=== PATIENT | female | born 1960 | race American Indian/Alaskan Native ===

== ENCOUNTER 2017-05-18 10:44 | Emergency (ER) | payer MEDICAID, OTHER ==
[2017-05-18] MEDS ORDERED: Aspirin 81 MG Tab.Chew PO ONE (11:09)
[2017-05-18] MEDS ORDERED: Nitroglycerin 0.4 MG Tab.SL SL PRN (11:09)
[2017-05-18] MEDS ORDERED: Sodium Chloride 0.9% 10 ML Syringe FLUSH PRN (11:09)
--- NOTE | 2017-05-18 11:09 | EDM.PDOC ---
ED HPI GENERAL MEDICAL PROBLEM - General Chief Complaint: Chest Pain Stated Complaint: [id number] BAD CHEST PAINS Time Seen by Provider: 05/18/17 11:00 Source of Information: Reports: Patient, RN, RN Notes Reviewed History Limitations: Reports: No Limitations - History of Present Illness INITIAL COMMENTS - FREE TEXT/NARRATIVE: Patient complains of burning pain in the chest and belching, nausea, vomiting and back pain. It has been coming and going for 2 days but much worse this morning. Patient states this began with epigastric pain, which is still present. She initially thought it was related to her GERD, but states she has been taking her Protonix which usually helps but she is not sure. Denies shortness of breath, cough, constipation or diarrhea. Admits to fever and chills sensation yesterday, but did not check her temperature. Duration: Constant, Getting Worse Location: Reports: Chest, Abdomen Quality: Reports: Burning, Pressure Severity: Severe Improves with: Reports: None Worsens with: Reports: Eating Associated Symptoms: Reports: No Other Symptoms Treatments LOGISTICS PROGRAM MANAGER: Reports: Acetaminophen, Other Medication(s) Epigastric Pain Score (Numeric/FACES): 8 - Related Data Allergies Allergy/AdvReac Type Severity Reaction Status Date / Time No Known Allergies Allergy Verified 05/18/17 11:05 Home Meds: Home Meds Pantoprazole [Protonix] 40 mg PO DAILY 01/29/13 [History] Acetaminophen [Tylenol Extra Strength] 500 mg PO Q6H PRN 04/11/13 [History] Ibuprofen [Motrin] 200 mg PO Q6H PRN 04/11/13 [History] Menthol [Bengay] 113 gm TP ASDIRECTED 04/11/13 [History] Past Medical History Gastrointestinal History: Reports: Cholelithiasis, GERD Musculoskeletal History: Reports: Back Pain, Chronic - Past Surgical History GI Surgical History: Reports: Appendectomy, Cholecystectomy Social & Family History - Family History Family Medical History: Noncontributory - Tobacco Use Years of Tobacco use: 35 - Alcohol Use Days Per Week of Alcohol Use: 0 - Recreational Drug Use Recreational Drug Use: No - Living Situation & Occupation Living situation: Reports: with Family ED ROS GENERAL - Review of Systems Review Of Systems: ROS reveals no pertinent complaints other than HPI. ED EXAM, GENERAL - Physical Exam Exam: See Below Exam Limited By: No Limitations General Appearance: Alert, WD/WN, No Apparent Distress Eye Exam: Bilateral Eye: Normal Inspection Ears: Hearing Grossly Normal Nose: Normal Inspection, Normal Mucosa, No Blood Throat/Mouth: Other (dry oral membranes) Head: Atraumatic, Normocephalic Neck: Normal Inspection, Supple, Non-Tender, Full Range of Motion Respiratory/Chest: No Respiratory Distress, Lungs Clear, Normal Breath Sounds, No Accessory Muscle Use, Chest Non-Tender Cardiovascular: Regular Rate, Rhythm, Tachycardia GI/Abdominal: Normal Bowel Sounds, Soft, No Distention, No Abnormal Bruit, Tender (epigastric and suprapubic regions, no peritoneal signs). No: Guarding, Rigid, Rebound (Female) Exam: Deferred Rectal (Female) Exam: Heme - Stool (negative) Back Exam: CVA Tenderness (R) (mild). No: CVA Tenderness (L) Neurological: Alert, Oriented, CN II-XII Intact, Normal Cognition, Normal Gait, No Motor/Sensory Deficits Psychiatric: Normal Affect, Normal Mood Skin Exam: Warm, Dry, Intact, Normal Color, No Rash EKG INTERPRETATION EKG Date: 05/18/17 Time: 10:59 Rhythm: Other (sinus rhythm) Rate (Beats/Min): 89 [place]: Normal P-Wave: Present QRS: Normal ST-T: Normal QT: Normal Course - Vital Signs Last Recorded V/S: Last Vital Signs Temp 36.8 C 05/18/17 10:58 Pulse 108 H 05/18/17 10:58 Resp 16 05/18/17 10:58 BP 150/78 H 05/18/17 11:17 Pulse Ox 100 05/18/17 10:58 - Orders/Labs/Meds Orders: Active Orders 24 hr Category Date Time Status EKG 12 Lead [EKG Documentation Completion] [RC] STAT Care 05/18/17 11:08 Active Peripheral IV Care [RC] . DIRECTED Care 05/18/17 11:10 Active CULTURE URINE [RM] Stat Lab 05/18/17 11:45 Received Peripheral IV Insertion Adult [OM.PC] Stat Oth 05/18/17 11:09 Ordered Labs: Laboratory Tests 05/18/17 05/18/17 05/18/17 Range/Units 11:18 11:18 11:18 WBC 8.8 (5.0-10.0) 10^3/uL RBC 4.33 (4.2-5.4) 10^6/uL Hgb 8.8 L D (12.0-16.0) g/dL Hct 28.9 L (37.0-47.0) % MCV 66.7 L D (80-100) fL MCH 20.3 L (27.0-34.0) pg MCHC 30.4 L (33.0-35.0) g/dL Plt Count 369 D (150-450) 10^3/uL Neut % (Auto) 74.1 (42.2-75.2) % Lymph % (Auto) 13.9 L (20.5-50.1) % [place] % (Auto) 10.3 H (2-8) % Eos % (Auto) 0.8 L (1.0-3.0) % Baso % (Auto) 0.9 (0.0-1.0) % PT 10.7 (9.0-12.0) SEC INR 1.1 (0.9-1.2) APTT 23.9 (22.0-34.0) SEC D-Dimer, Quantitative 152 (0-400) ng/mL Sodium 132 L (135-145) mmol/L Potassium 3.9 (3.6-5.0) mmol/L Chloride 99 L (101-111) mmol/L Carbon Dioxide 24.0 (21.0-31.0) mmol/L Anion Gap 12.9 BUN 11 (7-18) mg/dL Creatinine 0.6 (0.6-1.3) mg/dL Est Cr Clr Drug Dosing 82.80 mL/min Estimated GFR (MDRD) > 60 BUN/Creatinine Ratio 18.33 Glucose 115 H (74-105) mg/dL Calcium 9.1 (8.4-10.2) mg/dl Total Bilirubin 0.8 (0.2-1.0) mg/dL AST 18 (10-42) IU/L ALT 10 (10-60) IU/L Alkaline Phosphatase 59 (42-121) IU/L Troponin I < 0.02 (0.00-0.02) ng/ml Total Protein 7.7 (6.7-8.2) g/dl Albumin 4.3 (3.2-5.5) g/dl Globulin 3.4 Albumin/Globulin Ratio 1.26 Amylase 19 L (28-100) U/L Lipase 15 L (22-51) U/L Urine Color (YELLOW) Urine Appearance (CLEAR) Urine pH (5.0-9.0) Ur Specific [place] (1.005-1.030) Urine Protein (NEGATIVE) Urine Glucose (UA) (NEGATIVE) Urine Ketones (NEGATIVE) Urine Occult Blood (NEGATIVE) Urine Nitrite (NEGATIVE) Urine Bilirubin (NEGATIVE) Urine Urobilinogen (0.2-1.0) mg/dL Ur Leukocyte Esterase (NEGATIVE) Urine RBC /HPF Urine WBC (0-5/HPF) /HPF Ur Epithelial Cells /HPF Urine Bacteria (0-FEW/HPF) /HPF Urine Opiates Screen (NEGATIVE) Ur Oxycodone Screen (NEGATIVE) Urine Methadone Screen (NEGATIVE) Ur Barbiturates Screen (NEGATIVE) U Tricyclic Antidepress (NEGATIVE) Ur Phencyclidine Scrn (NEGATIVE) Ur Amphetamine Screen (NEGATIVE) U Methamphetamines Scrn (NEGATIVE) Urine MDMA Screen (NEGATIVE) U Benzodiazepines Scrn (NEGATIVE) Urine Cocaine Screen (NEGATIVE) U Marijuana (THC) Screen (NEGATIVE) 05/18/17 05/18/17 Range/Units 11:45 11:45 WBC (5.0-10.0) 10^3/uL RBC (4.2-5.4) 10^6/uL Hgb (12.0-16.0) g/dL Hct (37.0-47.0) % MCV (80-100) fL MCH (27.0-34.0) pg MCHC (33.0-35.0) g/dL Plt Count (150-450) 10^3/uL Neut % (Auto) (42.2-75.2) % Lymph % (Auto) (20.5-50.1) % [place] % (Auto) (2-8) % Eos % (Auto) (1.0-3.0) % Baso % (Auto) (0.0-1.0) % PT (9.0-12.0) SEC INR (0.9-1.2) APTT (22.0-34.0) SEC D-Dimer, Quantitative (0-400) ng/mL Sodium (135-145) mmol/L Potassium (3.6-5.0) mmol/L Chloride (101-111) mmol/L Carbon Dioxide (21.0-31.0) mmol/L Anion Gap BUN (7-18) mg/dL Creatinine (0.6-1.3) mg/dL Est Cr Clr Drug Dosing mL/min Estimated GFR (MDRD) BUN/Creatinine Ratio Glucose (74-105) mg/dL Calcium (8.4-10.2) mg/dl Total Bilirubin (0.2-1.0) mg/dL AST (10-42) IU/L ALT (10-60) IU/L Alkaline Phosphatase (42-121) IU/L Troponin I (0.00-0.02) ng/ml Total Protein (6.7-8.2) g/dl Albumin (3.2-5.5) g/dl Globulin Albumin/Globulin Ratio Amylase (28-100) U/L Lipase (22-51) U/L Urine Color Yellow (YELLOW) Urine Appearance Slightly cloudy (CLEAR) Urine pH 5.5 (5.0-9.0) Ur Specific [place] 1.025 (1.005-1.030) Urine Protein 30 H (NEGATIVE) Urine Glucose (UA) Negative (NEGATIVE) Urine Ketones Trace H (NEGATIVE) Urine Occult Blood Trace-lysed H (NEGATIVE) Urine Nitrite Positive H (NEGATIVE) Urine Bilirubin Small H (NEGATIVE) Urine Urobilinogen 1.0 (0.2-1.0) mg/dL Ur Leukocyte Esterase Trace H (NEGATIVE) Urine RBC 0-5 /HPF Urine WBC 5-10 H (0-5/HPF) /HPF Ur Epithelial Cells Rare /HPF Urine Bacteria Many H (0-FEW/HPF) /HPF Urine Opiates Screen Negative (NEGATIVE) Ur Oxycodone Screen Negative (NEGATIVE) Urine Methadone Screen Negative (NEGATIVE) Ur Barbiturates Screen Negative (NEGATIVE) U Tricyclic Antidepress Negative (NEGATIVE) Ur Phencyclidine Scrn Negative (NEGATIVE) Ur Amphetamine Screen Negative (NEGATIVE) U Methamphetamines Scrn Positive H (NEGATIVE) Urine MDMA Screen Negative (NEGATIVE) U Benzodiazepines Scrn Negative (NEGATIVE) Urine Cocaine Screen Negative (NEGATIVE) U Marijuana (THC) Screen Positive H (NEGATIVE) Meds: Medications Discontinued Medications Generic Name Dose Route Start Last Admin Trade Name Freq PRN Reason Stop Dose Admin Al Hydroxide/Mg Hydroxide 30 ml 05/18/17 12:45 05/18/17 14:04 Gi Cocktail PO 05/18/17 12:46 30 ml ONETIME ONE Administration Aspirin 324 mg 05/18/17 11:09 05/18/17 11:16 Aspirin PO 05/18/17 11:10 324 mg ONETIME ONE Administration Hydromorphone HCl 1 mg 05/18/17 12:45 05/18/17 12:56 Dilaudid IVPUSH 05/18/17 12:46 1 mg ONETIME ONE Administration Ceftriaxone Sodium 1,000 mg/ 50 mls @ 100 mls/hr 05/18/17 12:20 05/18/17 12: 38 Sodium Chloride IV 05/18/17 12:49 100 mls/hr ONETIME ONE Administration Sodium Chloride 1,000 mls @ 999 mls/hr 05/18/17 12:32 05/18/17 12:46 Normal Saline IV 05/18/17 13:32 999 mls/hr .BOLUS ONE Administration Iopamidol 75 ml 05/18/17 12:33 05/18/17 13:53 Isovue-300 (61%) IVPUSH 05/18/17 12:34 75 ml ONETIME ONE Administration Nitroglycerin 0.4 mg 05/18/17 11:09 05/18/17 11:17 Nitrostat SL 0.4 mg Q5M PRN Administration Chest Pain Ondansetron HCl 4 mg 05/18/17 12:32 05/18/17 12:44 Zofran IV 05/18/17 12:33 4 mg ONETIME ONE Administration Pantoprazole Sodium 40 mg 05/18/17 12:32 05/18/17 12:44 Protonix Iv IVPUSH 05/18/17 12:33 40 mg ONETIME ONE Administration Sodium Chloride 10 ml 05/18/17 11:09 05/18/17 11:24 Saline Flush FLUSH 10 ml ASDIRECTED PRN Administration Keep Vein Open - Radiology Interpretation Free Text/Narrative:: Chest x-ray: Chronic mild peribronchial "cuffing" and air trapping suggesting reactive airway disease (bronchitis) and bronchospasm. See rad report. CT abdomen and pelvis: Multilevel lower lumbar disc disease/arthritis. Appendectomy/cholecystectomy. Usual signs of senescence. No mechanical bowel obstruction, sign of malignant or acute intraperitoneal abnormality. Negative Kidneys. See rad report. Departure - Departure Time of Disposition: 14:38 Disposition: Home, Self-Care 01 Condition: Fair Clinical Impression: Pyelonephritis, Gastritis, GERD (gastroesophageal reflux disease), Non-cardiac chest pain Instructions: Gastritis, Adult, [id number], Pyelonephritis, Adult, Easy-to- Read Referrals: PCP,None [Primary Care Provider] - Forms: ED Department Discharge Additional Instructions: RX: Cipro 500mg. RX: Promethazine 25mg. &DO NOT DRIVE while under the influence of this medication. RX: [place] 5mg/325mg. *DO NOT Drive while under the influence of this medication. RX: Carafate 1gram. Clear liquid diet until nausea and vomiting resolve and then advance to soft bland diet as tolerated. Follow up in clinic next week - My Orders Last 24 Hours: My Active Orders 05/18/17 11:08 EKG 12 Lead [EKG Documentation Completion] [RC] STAT 05/18/17 11:09 Peripheral IV Insertion Adult [OM.PC] Stat 05/18/17 11:10 Peripheral IV Care [RC] . DIRECTED 05/18/17 11:45 CULTURE URINE [RM] Stat - Assessment/Plan Last 24 Hours: My Active Orders 05/18/17 11:08 EKG 12 Lead [EKG Documentation Completion] [RC] STAT 05/18/17 11:09 Peripheral IV Insertion Adult [OM.PC] Stat 05/18/17 11:10 Peripheral IV Care [RC] . DIRECTED 05/18/17 11:45 CULTURE URINE [RM] Stat
[2017-05-18 11:46] LABS: CHLORIDE,CL 99 mmol/L (101-111); SODIUM,NA 132 mmol/L (135-145)
--- NOTE | 2017-05-18 12:18 | CR ---
CLINICAL HISTORY: 56-year-old female with chest pain. INTERPRETATION: No acute new cardiopulmonary abnormality when compared to 29 January 2013 exam. Chronic mild peribronchial "cuffing" and air trapping suggesting reactive airway disease (bronchitis) and bronchospasm. Smoker? Chronic arthritic changes of the spine. Normal cardiac silhouette without alveolar edema or dependent effusion. No new lung mass, hilar lymphadenopathy or focal lobar pneumonia. No atelectasis/collapse. No pneumothorax.
[2017-05-18] MEDS ORDERED: cefTRIAXone 1,000 MG in Sodium Chloride 0.9% 50 ML IV ONE (12:20)
[2017-05-18] MEDS ORDERED: Ondansetron 4 MG/2 ML SDV IV ONE (12:32)
[2017-05-18] MEDS ORDERED: Pantoprazole 40 MG Vial IVPUSH ONE (12:32)
[2017-05-18] MEDS ORDERED: Sodium Chloride 0.9% 1,000 ML IV ONE (12:32)
[2017-05-18] MEDS ORDERED: Iopamidol 612 MG/ML 75 ML Bottle IVPUSH ONE (12:33)
[2017-05-18] MEDS ORDERED: HYDROmorphone 0.5 MG/0.5 ML Syringe IVPUSH ONE (12:45)
[2017-05-18] MEDS ORDERED: GI Cocktail Oral Solution 30 ML PO ONE (12:45)
--- NOTE | 2017-05-18 14:19 | CT ---
Clinical history: 56-year-old female smoker with upper abdominal pain, vomiting and positive nitrates in the urine. Surgical history of cholecystectomy and appendectomy. Scan technique: Volume acquisition of data from the abdomen and pelvis obtained without oral but befo re and during intravenous infusion 75 cc nonionic Isovue while patient was lying supine on the [employer] s multi slice scanner [place], [place]. All data archived in the PACS system for storage, reformatting and study. Interpretation: 1. Mild scoliosis and signs of chronic multilevel lower lumbar disc disease i.e. interspace narrowing , gas nucleus pulposus, reactive sclerosis and marginal spur formation lower thoracic spine and L4-5, L5-S1 levels. No fracture or dislocation. 2. Normal reniform size, axis and configuration bilaterally. No sign of cortical inflammation, cystic /solid renal cortical mass, nephrolithiasis or obstructive uropathy. Symmetrically distended normal a ppearing urinary bladder. Surgical clips RLQ. 3. Surgical clips gallbladder fossa. Normal hepatic size, configuration and homogeneous density. No d iscrete intrahepatic mass lesion or signs of intra/extrahepatic biliary duct dilatation. Normal splee n. Pancreas unremarkable. 4. Normal stomach. No sign of mechanical bowel obstruction, ascites or free intraperitoneal air. No v entral wall or inguinal hernia. 5. Calcifications scattered course of the normal caliber, ectatic abdominal aorta. No sign of aneurys m or dissection. 6. Normal midline uterus. No adnexal mass lesions. CONCLUSION: Multilevel lower lumbar disc disease/arthritis. Appendectomy/cholecystectomy. Usual signs of senescence. No mechanical bowel obstruction, sign of malignancy or acute intraperitoneal abnormality. Negative ki dneys.
== END 2017-05-18 14:53 | disposition home or self-care (01) ==
LOC: DL.ED 10:44
DX: K52.9 Noninfective gastroenteritis and colitis, unspecified (principal); N12 Tubulo-interstitial nephritis, not specified as acute or chronic; K21.9 Gastro-esophageal reflux disease without esophagitis; Z79.899 Other long term (current) drug therapy
CPT/HCPCS: 36415; 71045; 74178; 80053; 80305; 81001; 82150; 82272; 83690; 84484; 85025; 85379; 85610; 85730; 87086; 87088; 87186; 93005; 93010; 96361; 96365; 96375; 99285; A9270; C9113; J0696; J1170; J2405; J7030; J7050; Q9967

== ENCOUNTER 2019-01-18 09:13 | Emergency (ER) | payer SELFPAY ==
--- NOTE | 2019-01-18 09:22 | EDM.PDOC ---
ED HPI GENERAL MEDICAL PROBLEM - General Chief Complaint: Chest Pain Stated Complaint: CHEST PAIN Time Seen by Provider: 01/18/19 09:22 Source of Information: Reports: Patient, Old Records, RN, RN Notes Reviewed History Limitations: Reports: No Limitations - History of Present Illness INITIAL COMMENTS - FREE TEXT/NARRATIVE: Pt presents to ER from home by POV with c/o onset of right sided chest pain at 0400HRS this morning. The pain radiates to the back. Also c/o pain with swelling to the left wrist that has been present x1 month when she bumped it on a counter top. Pt thinks that she has "blood poisoning" because she has a lump on the left wrist. Denies fever, chills, N/V, abdominal pain, cough, wheezing, shortness of breath, palpitations, orthopnea, or edema. Onset: Today Onset Date: 01/18/19 Onset Time: 04:00 Duration: Constant Location: Reports: Chest, Upper Extremity, Left Quality: Reports: Ache, Sharp Severity: Moderate Improves with: Reports: None Worsens with: Reports: Breathing (Coughing) Associated Symptoms: Reports: No Other Symptoms Right Chest Pain Score (Numeric/FACES): 7 - Related Data Allergies Allergy/AdvReac Type Severity Reaction Status Date / Time No Known Allergies Allergy Verified 01/18/19 09:20 Home Meds: Home Meds . [No Known Home Meds] 01/18/19 [History] Past Medical History HEENT History: Reports: None Cardiovascular History: Reports: None Respiratory History: Reports: COPD Gastrointestinal History: Reports: Cholelithiasis, GERD Genitourinary History: Reports: None REGISTERED NURSE AMBULATORY History: Reports: None Musculoskeletal History: Reports: Back Pain, Chronic Neurological History: Reports: None Psychiatric History: Reports: Anxiety Endocrine/Metabolic History: Reports: None Hematologic History: Reports: None Immunologic History: Reports: None Oncologic (Cancer) History: Reports: None Dermatologic History: Reports: None - Infectious Disease History Infectious Disease History: Reports: Chicken Pox - Past Surgical History GI Surgical History: Reports: Appendectomy, Cholecystectomy Social & Family History - Family History Family Medical History: Noncontributory - Tobacco Use Smoking Status *Q: Current Every Day Smoker Tobacco Use Within Last Twelve Months: Cigarettes Years of Tobacco use: 42 Packs/Tins Daily: 0.5 Smoking Cessation Information Provided To Patient: Patient Refused Second Hand Smoke Exposure: Yes Second Hand Smoke Education Provided: Patient Refused - Caffeine Use Caffeine Use: Reports: Coffee, Soda, Tea - Alcohol Use Alcohol Use History: No - Recreational Drug Use Recreational Drug Use: Yes Recreational Drug Type: Reports: Marijuana/Hashish Recreational Drug Use Frequency: Socially - Living Situation & Occupation Living situation: Reports: with Family Occupation: Employed ED ROS GENERAL - Review of Systems Review Of Systems: Comprehensive ROS is negative, except as noted in HPI. ED EXAM, GENERAL - Physical Exam Exam: See Below Exam Limited By: No Limitations General Appearance: Alert, WD/WN, No Apparent Distress Eye Exam: Bilateral Eye: Normal Inspection (No scleral icterus) Nose: Normal Inspection, Normal Mucosa, No Blood Throat/Mouth: Normal Inspection, Normal Lips, Normal Voice, No Airway Compromise Head: Atraumatic, Normocephalic Neck: Normal Inspection, Supple, Non-Tender, Full Range of Motion Respiratory/Chest: No Respiratory Distress, No Accessory Muscle Use, Crackles ( Rt chest), Other (Rt upper chest tenderness to firm palpation.). No: Rales, Rhonchi, Wheezing, Stridor Cardiovascular: Normal Peripheral Pulses, Regular Rate, Rhythm, No Edema, No Gallop, No JVD, No Murmur, No Rub GI/Abdominal: Normal Bowel Sounds, Soft, Non-Tender, No Organomegaly, No Distention, No Abnormal Bruit, No Mass (Female) Exam: Deferred Rectal (Female) Exam: Deferred Back Exam: Normal Inspection, Full Range of Motion. No: CVA Tenderness (L), CVA Tenderness (R) Extremities: Normal Inspection, Normal Range of Motion, Non-Tender, No Pedal Edema, Normal Capillary Refill. No: Erica's Sign Neurological: Alert, Oriented, CN II-XII Intact, Normal Cognition, Normal Gait, No Motor/Sensory Deficits Psychiatric: Normal Affect, Normal Mood Skin Exam: Warm, Dry, Intact, Normal Color, No Rash EKG INTERPRETATION EKG Date: 01/18/19 Time: 09:21 Rhythm: Other Rate (Beats/Min): 97 [place]: Normal P-Wave: Present QRS: Normal ST-T: Normal QT: Normal Comparison: No Change Course - Vital Signs Last Recorded V/S: Last Vital Signs Temp 97.5 F 01/18/19 09:16 Pulse 93 01/18/19 09:16 Resp 18 01/18/19 09:16 BP 139/62 01/18/19 09:16 Pulse Ox 99 01/18/19 09:16 - Orders/Labs/Meds Orders: Active Orders 24 hr Category Date Time Status EKG Documentation Completion [RC] STAT Care 01/18/19 09:24 Active Peripheral IV Care [RC] . DIRECTED Care 01/18/19 09:25 Active Wrist Comp Min 3V Lt [CR] Urgent Exams 01/18/19 09:36 Taken Sodium Chloride 0.9% [Saline Flush] Med 01/18/19 09:24 Active 10 ml FLUSH ASDIRECTED PRN Peripheral IV Insertion Adult [OM.PC] Routine Oth 01/18/19 09:24 Ordered Medication Orders Sodium Chloride (Saline Flush) 10 ml FLUSH ASDIRECTED PRN PRN Reason: Keep Vein Open Last Admin: 01/18/19 09:32 Dose: 10 ml Labs: Laboratory Tests 01/18/19 01/18/19 01/18/19 Range/Units 09:23 09:23 09:23 WBC 8.3 (5.0-10.0) 10^3/uL RBC 4.68 (4.2-5.4) 10^6/uL Hgb 11.0 L D (12.0-16.0) g/dL Hct 33.9 L (37.0-47.0) % MCV 72.4 L D (80-100) fL MCH 23.5 L (27.0-34.0) pg MCHC 32.4 L (33.0-35.0) g/dL Plt Count 426 (150-450) 10^3/uL Neut % (Auto) 57.6 (42.2-75.2) % Lymph % (Auto) 24.9 (20.5-50.1) % [place] % (Auto) 14.1 H (2-8) % Eos % (Auto) 2.4 (1.0-3.0) % Baso % (Auto) 1.0 (0.0-1.0) % D-Dimer, Quantitative 258 (0-400) ng/mL Sodium 134 L (135-145) mmol/L Potassium 4.4 (3.6-5.0) mmol/L Chloride 98 L (101-111) mmol/L Carbon Dioxide 27.0 (21.0-31.0) mmol/L Anion Gap 13.4 BUN 12 (7-18) mg/dL Creatinine 0.7 (0.6-1.3) mg/dL Est Cr Clr Drug Dosing 69.28 mL/min Estimated GFR (MDRD) > 60 BUN/Creatinine Ratio 17.14 Glucose 75 (74-105) mg/dL Calcium 9.4 (8.4-10.2) mg/dl Total Bilirubin 0.8 (0.2-1.0) mg/dL AST 20 (10-42) IU/L ALT 12 (10-60) IU/L Alkaline Phosphatase 73 (42-121) IU/L Troponin I < 0.02 (0.00-0.02) ng/ml Total Protein 8.1 (6.7-8.2) g/dl Albumin 4.5 (3.2-5.5) g/dl Globulin 3.6 Albumin/Globulin Ratio 1.25 Amylase 31 (28-100) U/L Lipase 38 (22-51) U/L Meds: Medications Generic Name Dose Route Start Last Admin Trade Name Freq PRN Reason Stop Dose Admin Sodium Chloride 10 ml 01/18/19 09:24 01/18/19 09:32 Saline Flush FLUSH 10 ml ASDIRECTED PRN Administration Keep Vein Open Discontinued Medications Generic Name Dose Route Start Last Admin Trade Name Freq PRN Reason Stop Dose Admin Methylprednisolone Sodium Succinate 125 mg 01/18/19 10:10 01/18/19 10:16 Solu-Medrol IVPUSH 01/18/19 10:11 125 mg ONETIME ONE Administration Promethazine HCl/Codeine 10 ml 01/18/19 10:10 01/18/19 10:20 Phenergan With Codeine PO 01/18/19 10:11 10 ml ONETIME ONE Administration - Radiology Interpretation Free Text/Narrative:: CXR: chronic appearing COPD changes, no acute process, see Rad. report. XR Left Wrist: no acute fracture, see Rad. report. Departure - Departure Time of Disposition: 10:24 Disposition: Home, Self-Care 01 Condition: Good Clinical Impression: Pleuritic chest pain Injury of ulnar collateral ligament of left wrist Qualifiers: Encounter type: initial encounter Qualified Code(s): S66.802A - Unspecified injury of other specified muscles, fascia and tendons at wrist and hand level, left hand, initial encounter Instructions: Pleurisy, [id number], Wrist Pain, Adult, [id number] Forms: ED Department Discharge Additional Instructions: Rx: Prednisone 20mg *Take with meals. Rx: Tylenol-Codeine Syrup 120mg-12mg/5ml *Do not drive while under the influence of this medication. Try to quit smoking to reduce lung inflammation now, and lung disease risk in the future. Follow up in clinic in the next week for recheck and consider orthopedic referral for left wrist evaluation. - My Orders Last 24 Hours: My Active Orders 01/18/19 09:24 EKG Documentation Completion [RC] STAT Sodium Chloride 0.9% [Saline Flush] 10 ml FLUSH ASDIRECTED PRN Peripheral IV Insertion Adult [OM.PC] Routine 01/18/19 09:25 Peripheral IV Care [RC] . DIRECTED 01/18/19 09:36 Wrist Comp Min 3V Lt [CR] Urgent - Assessment/Plan Last 24 Hours: My Active Orders 01/18/19 09:24 EKG Documentation Completion [RC] STAT Sodium Chloride 0.9% [Saline Flush] 10 ml FLUSH ASDIRECTED PRN Peripheral IV Insertion Adult [OM.PC] Routine 01/18/19 09:25 Peripheral IV Care [RC] . DIRECTED 01/18/19 09:36 Wrist Comp Min 3V Lt [CR] Urgent
[2019-01-18] MEDS ORDERED: Sodium Chloride 0.9% 10 ML Syringe FLUSH PRN (09:24)
[2019-01-18 10:00] LABS: ANION GAP 13.4; CHLORIDE,CL 98 mmol/L (101-111); SODIUM,NA 134 mmol/L (135-145)
[2019-01-18] MEDS ORDERED: methylPREDNISolone Sodium Succinate 125 MG/2 ML SDV IVPUSH ONE (10:10)
[2019-01-18] MEDS ORDERED: Codeine/Promethazine 10-6.25 MG/5 ML Syrup 5 ML UD Cup PO ONE (10:10)
--- NOTE | 2019-01-18 10:19 | CR ---
EXAMINATION: Chest 1V Frontal SEX: Female AGE: 58 years CLINICAL HISTORY: 58-year-old female complaining of chest pain. INTERPRETATION: External monitoring and evaluation advisor leads. 1. No acute new cardiopulmonary abnormality identified in the interval since AP film 18 May 2017. 2. Chronic mild reactive airway disease (peribronchial "cuffing"). 3. Normal cardiac silhouette without pulmonary vascular congestion, alveolar edema or dependent effusion. 4. No lung mass, hilar lymphadenopathy or focal lobar pneumonia. 5. No atelectasis/collapse. No pneumothorax. CONCLUSION: Negative exam.
--- NOTE | 2019-01-18 11:02 | CR ---
EXAMINATION: Wrist Comp Min 3V Lt SEX: Female AGE: 58 years CLINICAL HISTORY: 58-year-old female complaining of persistent left wrist pain (injury 1 month ago). INTERPRETATION: 1. Homogeneous normal bone mineral density for age and gender. 2. Subtle reactive sclerosis radial carpal and first carpometacarpal joint suggesting early arthritis. 3. Mild soft tissue swelling. No sign of acute or healing fracture left wrist. 4. Distal radius/ulna and proximal metacarpals unremarkable. 5. No foreign bodies. CONCLUSION: No fracture or dislocation. Mild osteoarthritis.
== END 2019-01-18 10:35 | disposition home or self-care (01) ==
LOC: DL.ED 09:13
DX: R07.81 Pleurodynia (principal); S66.802A Unspecified injury of other specified muscles, fascia and tendons at wrist and hand level, left hand, initial encounter; J44.9 Chronic obstructive pulmonary disease, unspecified; F17.210 Nicotine dependence, cigarettes, uncomplicated; W22.8XXA Striking against or struck by other objects, initial encounter
CPT/HCPCS: 36415; 71045; 73110; 80053; 82150; 83690; 84484; 85025; 85379; 99285; A9270; J2930; 93010; 99284

== ENCOUNTER 2020-07-17 23:34 | Emergency (ER) | payer MEDICAID ==
--- NOTE | 2020-07-17 23:40 | EDM.PDOC ---
ED HPI GENERAL MEDICAL PROBLEM - General Stated Complaint: CHEST PAINS Time Seen by Provider: 07/17/20 23:40 Source of Information: Reports: Patient, RN, RN Notes Reviewed History Limitations: Reports: No Limitations - History of Present Illness INITIAL COMMENTS - FREE TEXT/NARRATIVE: Jailyn is a 59 y/o female who presents to the ED via personal vehicle with complaints of chest pain and shortness of breath. The patient reports her pain started two day ago and has progressively worsened in that time. She characterizes the pain as sharp in nature and notes it radiates into her left arm. She denies recent illness, fever, shaking chills, cough, sore throat, dyspepsia, vomiting, or diarrhea. She does attest to transient nausea, however none at this time. The patient states she smokes 1/2 pack of cigarettes per day, drinks large quantities of alcohol regularly, and smokes marijuana and methamphetamines regularly. Her last drink was this morning, she notes she has been on a "..faith. Her last drug use was also this morning. Left Chest Pain Score (Numeric/FACES): 8 - Related Data Allergies Allergy/AdvReac Type Severity Reaction Status Date / Time No Known Allergies Allergy Verified 07/17/20 23:48 Home Meds: Home Meds . 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 Musculoskeletal History: Reports: Back Pain, Chronic Neurological History: Reports: None Psychiatric History: Reports: Anxiety Endocrine/Metabolic History: Reports: None Hematologic History: Reports: None Immunologic History: Reports: None Oncologic (Cancer) History: Reports: None Dermatologic History: Reports: None - Infectious Disease History Infectious Disease History: Reports: Chicken Pox - Past Surgical History GI Surgical History: Reports: Appendectomy, Cholecystectomy Social & Family History - Family History Family Medical History: No Pertinent Family History - Caffeine Use Caffeine Use: Reports: Coffee, Soda, Tea - Living Situation & Occupation Living situation: Reports: with Family Occupation: Employed ED ROS GENERAL - Review of Systems Review Of Systems: Comprehensive ROS is negative, except as noted in HPI. ED EXAM, GENERAL - Physical Exam Exam: See Below Exam Limited By: Intoxication General Appearance: Alert, No Apparent Distress Eye Exam: Bilateral Eye: EOMI, Normal Inspection, PERRL (3mm) Ears: Normal External Exam, Hearing Grossly Normal Nose: Normal Inspection, Normal Mucosa, No Blood Throat/Mouth: Normal Teeth (Poor dentition), Normal Voice, No Airway Compromise. No: Normal Lips (Dry, cracked), Normal Oropharynx (Dry mucous membranes) Head: Normocephalic Neck: Normal Inspection, Supple, Non-Tender, Full Range of Motion Respiratory/Chest: No Respiratory Distress, Lungs Clear, Normal Breath Sounds, No Accessory Muscle Use, Chest Non-Tender Cardiovascular: Normal Peripheral Pulses, Regular Rate, Rhythm, No Edema, No Gallop, No JVD, No Murmur, No Rub Peripheral Pulses: 2+: Radial (L), Radial (R) GI/Abdominal: Soft, Non-Tender, No Distention, No Abnormal Bruit, No Mass, Pelvis Stable, Abnormal Bowel Sounds (Hypoactive) (Female) Exam: Deferred Rectal (Female) Exam: Deferred Back Exam: Normal Inspection, Full Range of Motion Extremities: Normal Inspection, Normal Range of Motion, Non-Tender, Normal Capillary Refill, No Pedal Edema Neurological: Alert, Oriented, CN II-XII Intact, Normal Gait, No Motor/Sensory Deficits, Slow to Respond. No: Memory Loss Remote Events, Memory Loss Recent Events Psychiatric: Normal Affect, Normal Mood Skin Exam: Warm, Dry, Intact, Normal Color, No Rash. No: Cyanosis, Erythema, Jaundice, Mottled, Pallor #1 Interpretation EKG Date: 07/17/20 Time: 23:38 Rhythm: NSR Rate (Beats/Min): 86 [place]: Normal P-Wave: Present QRS: Normal ST-T: Normal QT: Normal ME/PQ Interval: 0.18 Comparison: No Change EKG Interpretation Comments: NSR; No evidence of acute myocardial ischemia Course - Vital Signs Last Recorded V/S: Last Vital Signs Temp 97.6 F 07/17/20 23:44 Pulse 87 07/17/20 23:44 Resp 26 H 07/17/20 23:44 BP 124/70 07/17/20 23:44 Pulse Ox 100 07/17/20 23:44 - Orders/Labs/Meds Labs: Laboratory Tests 07/17/20 07/17/20 07/17/20 Range/Units 23:45 23:45 23:45 WBC 11.0 H (5.0-10.0) 10^3/uL RBC 4.85 (4.2-5.4) 10^6/uL Hgb 16.1 H D (12.0-16.0) g/dL Hct 45.9 (37.0-47.0) % MCV 94.6 D (80-100) fL MCH 33.2 (27.0-34.0) pg MCHC 35.1 H (33.0-35.0) g/dL Plt Count 310 D (150-450) 10^3/uL Neut % (Auto) 69.5 (42.2-75.2) % Lymph % (Auto) 19.2 L (20.5-50.1) % [place] % (Auto) 8.6 H (2-8) % Eos % (Auto) 2.2 (1.0-3.0) % Baso % (Auto) 0.5 (0.0-1.0) % Sodium 137 (136-145) mmol/L Potassium 3.6 (3.5-5.1) mmol/L Chloride 99 (98-107) mmol/L Carbon Dioxide 27 (21-32) mmol/L Anion Gap 14.6 H (7-13) mEq/L BUN 15 (7-18) mg/dL Creatinine 0.85 (0.55-1.02) mg/dL Est Cr Clr Drug Dosing 58.95 mL/min Estimated GFR (MDRD) > 60 BUN/Creatinine Ratio 17.6 (No establ ref range) Glucose 95 (70-99) mg/dL Lactic Acid 0.5 (0.4-2.0) mmol/L Calcium 8.6 (8.5-10.1) mg/dL Magnesium 2.1 (1.8-2.4) mg/dL Total Bilirubin 0.7 (0.2-1.0) mg/dL AST 19 (15-37) U/L ALT 26 (14-59) U/L Alkaline Phosphatase 88 (46-116) U/L Troponin I High Sens 15 (<=51) pg/mL C-Reactive Protein < 0.2 (0.0-0.9) mg/dL B-Natriuretic Peptide 6 (0-100) pg/ml Total Protein 7.2 (6.4-8.2) g/dL Albumin 3.9 (3.4-5.0) g/dL Globulin 3.3 Albumin/Globulin Ratio 1.2 Urine Color (YELLOW) Urine Appearance (CLEAR) Urine pH (5.0-9.0) Ur Specific [place] (1.005-1.030) Urine Protein (NEGATIVE) Urine Glucose (UA) (NEGATIVE) Urine Ketones (NEGATIVE) Urine Occult Blood (NEGATIVE) Urine Nitrite (NEGATIVE) Urine Bilirubin (NEGATIVE) Urine Urobilinogen (0.2-1.0) mg/dL Ur Leukocyte Esterase (NEGATIVE) Urine RBC /HPF Urine WBC (0-5/HPF) /HPF Ur Epithelial Cells (NOT SEEN) /HPF Amorphous Sediment (NOT SEEN) /HPF Urine Bacteria (0-FEW/HPF) /HPF Urine Mucus (NOT SEEN) /LPF Urine Opiates Screen (NEGATIVE) Ur Oxycodone Screen (NEGATIVE) Urine Methadone Screen (NEGATIVE) Ur Barbiturates Screen (NEGATIVE) U Tricyclic Antidepress (NEGATIVE) Ur Phencyclidine Scrn (NEGATIVE) Ur Amphetamine Screen (NEGATIVE) U Methamphetamines Scrn (NEGATIVE) Urine MDMA Screen (NEGATIVE) U Benzodiazepines Scrn (NEGATIVE) Urine Cocaine Screen (NEGATIVE) U Marijuana (THC) Screen (NEGATIVE) Ethyl Alcohol < 3 (0) mg/dL 07/18/20 07/18/20 Range/Units 00:27 00:27 WBC (5.0-10.0) 10^3/uL RBC (4.2-5.4) 10^6/uL Hgb (12.0-16.0) g/dL Hct (37.0-47.0) % MCV (80-100) fL MCH (27.0-34.0) pg MCHC (33.0-35.0) g/dL Plt Count (150-450) 10^3/uL Neut % (Auto) (42.2-75.2) % Lymph % (Auto) (20.5-50.1) % [place] % (Auto) (2-8) % Eos % (Auto) (1.0-3.0) % Baso % (Auto) (0.0-1.0) % Sodium (136-145) mmol/L Potassium (3.5-5.1) mmol/L Chloride (98-107) mmol/L Carbon Dioxide (21-32) mmol/L Anion Gap (7-13) mEq/L BUN (7-18) mg/dL Creatinine (0.55-1.02) mg/dL Est Cr Clr Drug Dosing mL/min Estimated GFR (MDRD) BUN/Creatinine Ratio (No establ ref range) Glucose (70-99) mg/dL Lactic Acid (0.4-2.0) mmol/L Calcium (8.5-10.1) mg/dL Magnesium (1.8-2.4) mg/dL Total Bilirubin (0.2-1.0) mg/dL AST (15-37) U/L ALT (14-59) U/L Alkaline Phosphatase (46-116) U/L Troponin I High Sens (<=51) pg/mL C-Reactive Protein (0.0-0.9) mg/dL B-Natriuretic Peptide (0-100) pg/ml Total Protein (6.4-8.2) g/dL Albumin (3.4-5.0) g/dL Globulin Albumin/Globulin Ratio Urine Color Yellow (YELLOW) Urine Appearance Slightly cloudy (CLEAR) Urine pH 5.0 (5.0-9.0) Ur Specific [place] 1.020 (1.005-1.030) Urine Protein Negative (NEGATIVE) Urine Glucose (UA) Negative (NEGATIVE) Urine Ketones Negative (NEGATIVE) Urine Occult Blood Trace-intact H (NEGATIVE) Urine Nitrite Positive H (NEGATIVE) Urine Bilirubin Negative (NEGATIVE) Urine Urobilinogen 0.2 (0.2-1.0) mg/dL Ur Leukocyte Esterase Trace H (NEGATIVE) Urine RBC 0-5 /HPF Urine WBC 10-20 H (0-5/HPF) /HPF Ur Epithelial Cells Few (NOT SEEN) /HPF Amorphous Sediment Occasional (NOT SEEN) /HPF Urine Bacteria Many H (0-FEW/HPF) /HPF Urine Mucus Rare (NOT SEEN) /LPF Urine Opiates Screen Negative (NEGATIVE) Ur Oxycodone Screen Negative (NEGATIVE) Urine Methadone Screen Negative (NEGATIVE) Ur Barbiturates Screen Negative (NEGATIVE) U Tricyclic Antidepress Negative (NEGATIVE) Ur Phencyclidine Scrn Negative (NEGATIVE) Ur Amphetamine Screen Positive H (NEGATIVE) U Methamphetamines Scrn Positive H (NEGATIVE) Urine MDMA Screen Positive H (NEGATIVE) U Benzodiazepines Scrn Negative (NEGATIVE) Urine Cocaine Screen Positive H (NEGATIVE) U Marijuana (THC) Screen Positive H (NEGATIVE) Ethyl Alcohol (0) mg/dL Meds: Medications Discontinued Medications Generic Name Dose Route Start Last Admin Trade Name Nanda PRN Reason Stop Dose Admin Sodium Chloride 1,000 mls @ 999 mls/hr 07/18/20 00:36 07/18/20 01:05 Normal Saline IV 07/18/20 01:36 999 mls/hr .BOLUS ONE Administration Nitrofurantoin Macrocrystals 100 mg 07/18/20 01:06 07/18/20 01:19 Nitrofurantoin Monohydrate/Macrocrystalline 100 Mg Cap PO 07/18/20 01:07 100 mg ONETIME ONE Administration - Radiology Interpretation Free Text/Narrative:: [facility] [place] [facility] Final Radiology Report Call: [phone] assistance Online chat: [email or web address] Name: JAILYN THURSTON Age: 59Years F Date: 07/17/2020 SSN: -- : [id number] Study: CR CHEST 1V FRONTAL Requesting Physician: Julee Acosta Images: 1 Addl Studies: Provided Clinical History: Chest pain Contrast: Contrast Medium: Contrast Amount: Contrast Method: Page 1 of 2 PROCEDURE INFORMATION: Exam: XR Chest Exam date and time: 07/17/2020 11:50 PM Age: 59 years old Clinical indication: Other: Chest pain TECHNIQUE: Imaging protocol: XR of the chest. Views: 1 view. Total images: 1 COMPARISON: CR Chest 1V Frontal 01/18/2019 9:32 AM FINDINGS: Lungs: Question mild hyperexpansion and hyperlucency with mild diaphragmatic flattening suggesting possible COPD. Pulmonary vasculature grossly normal. No gross pulmonary infiltrates. Pleural spaces: No pleural effusion. No pneumothorax. Heart/Mediastinum: Heart size normal. No tracheal/mediastinal shift. Vasculature: Mild aortic ectasia/tortuosity. Bones/joints: No acute osseous abnormalities are identified. Osteopenia. Chronic appearing resorption in the distal left clavicle likely relates to remote prior trauma or surgery. Mild rightward convexity lumbar scoliosis. Organs: Right upper quadrant surgical clips suggest prior cholecystectomy. IMPRESSION: 1. No acute thoracic process. 2. Evidence of COPD. 3. Osteopenia. Chronic changes in the distal left clavicle. No acute osseous injuries are evident radiographically. Thank you for allowing us to participate in the care of your patient. Dictated and Authenticated by: Shan Gaytan MD 07/18/2020 12:58 AM Central Time ([place] & [place]) - Re-Assessments/Exams Free Text/Narrative Re-Assessment/Exam: 07/17/20 NS 1L bolus initiated while labs pending. Findings of examination, lab work, and imaging reviewed with patient. Will treat UTI with Macrobid. Discussed supportive cares for UTI and COPD. Discussed cardiac workup and importance of refraining from use of recreational drugs and drinking alcohol to excess. Red flag signs and symptoms which would warrant reevaluation reviewed. Patient verbalized understanding and agreement with the plan of care. Departure - Departure Time of Disposition: 00:58 Disposition: Home, Self-Care 01 Condition: Good Clinical Impression: Methamphetamine use, Cannabis use, uncomplicated, Cocaine use, MDMA abuse, Atypical chest pain Acute cystitis Qualifiers: Hematuria presence: with hematuria Qualified Code(s): N30.01 - Acute cystitis with hematuria COPD (chronic obstructive pulmonary disease) Qualifiers: COPD type: unspecified COPD Qualified Code(s): J44.9 - Chronic obstructive pulm onary disease, unspecified Instructions: Nonspecific Chest Pain, Adult, Methamphetamines Use Disorder, Chest Wall Pain Referrals: Magen Hill MD [Primary Care Provider] - Forms: ED Department Discharge Additional Instructions: Rx: Macrobid 1.) Take all of your antibiotic until it is gone, even as symptoms improve. 2.) Do not use methamphetamines, cocaine, MDMA, cannabis, or alcohol 3.) Follow up with primary care provider regarding today's visit should symptoms persist or worsen. 4.) Drink plenty of water to stay hydrated and flush out kidneys.
[2020-07-18] MEDS ORDERED: Sodium Chloride 0.9% 1,000 ML IV ONE (00:36)
[2020-07-18 00:42] LABS: ANION GAP 14.6 mEq/L (7-13); CHLORIDE,CL 99 mmol/L (98-107); SODIUM,NA 137 mmol/L (136-145)
--- NOTE | 2020-07-18 00:58 | CR ---
PROCEDURE INFORMATION: Exam: XR Chest Exam date and time: 07/17/2020 11:50 PM Age: 59 years old Clinical indication: Other: Chest pain TECHNIQUE: Imaging protocol: XR of the chest. Views: 1 view. Total images: 1 COMPARISON: CR Chest 1V Frontal 01/18/2019 9:32 AM FINDINGS: Lungs: Question mild hyperexpansion and hyperlucency with mild diaphragmatic flattening suggesting possible COPD. Pulmonary vasculature grossly normal. No gross pulmonary infiltrates. Pleural spaces: No pleural effusion. No pneumothorax. Heart/Mediastinum: Heart size normal. No tracheal/mediastinal shift. Vasculature: Mild aortic ectasia/tortuosity. Bones/joints: No acute osseous abnormalities are identified. Osteopenia. Chronic appearing resorption in the distal left clavicle likely relates to remote prior trauma or surgery. Mild rightward convexity lumbar scoliosis. Organs: Right upper quadrant surgical clips suggest prior cholecystectomy. IMPRESSION: 1. No acute thoracic process. 2. Evidence of COPD. 3. Osteopenia. Chronic changes in the distal left clavicle. No acute osseous injuries are evident radiographically.
[2020-07-18] MEDS ORDERED: Nitrofurantoin Monohydrate/Macrocrystalline 100 MG Cap PO ONE (01:06)
== END 2020-07-18 01:29 | disposition home or self-care (01) ==
LOC: DL.ED 23:34
DX: J44.9 Chronic obstructive pulmonary disease, unspecified (principal); N30.01 Acute cystitis with hematuria; F12.90 Cannabis use, unspecified, uncomplicated; F15.90 Other stimulant use, unspecified, uncomplicated; F14.90 Cocaine use, unspecified, uncomplicated
CPT/HCPCS: 36415; 71045; 80053; 80305-QW; 80307; 81001; 83605; 83735; 83880; 84484; 85025; 86140; 87086; 87088; 87186; 93005; 99285-25; A9270-GY; J7030